=== PATIENT | female | born 1935 | race Caucasian/White ===

== ENCOUNTER 2016-05-15 09:04 | Day surgery (SDC) | payer MEDICARE, OTHER ==
--- NOTE | ~2016-05-15 | EGD ---
EGD REPORT [facility] [address] [place]. [address] NAME: MARLEE LOYOLA : [birth year] [place]US : [place] [facility] [place] [id number] AGE: 80 ADM/REG DATE : 05/15/16 MR#: [id number] REPORT SERV DATE: 05/15/16 DICTATED BY: MINERVA DE LA FUENTE DATE: 05/15/16 REPORT STATUS : Draft TRANSCRIBED BY: [facility] DATE: 05/15/16 Endoscopy Center Patient Name: Marlee Loyola Date of : 1935 Attending MD: MINERVA DE LA FUENTE MD Procedure Date No Time: 05/15/2016 Procedure: Colonoscopy Indications: FH of Colon Cancer - 1st degree relative, FH of Colon Cancer - multiple second-degree relatives, Change in bowel habits, Fecal incontinence Referring MD: SHARYN ECHEVARRIA Medicines: as per anesthesia Complications: No immediate complications. Procedure: After I obtained informed consent, the scope was passed under direct vision. Throughout the procedure, the patient's blood pressure, pulse, and oxygen saturations were monitored continuously. The Colonoscope was introduced through the anus and advanced to the cecum, identified by appendiceal orifice and ileocecal valve. The colonoscopy was performed without difficulty. The patient tolerated the procedure. The quality of the bowel preparation was adequate to identify polyps. Findings: The perianal and digital rectal examinations were normal. Multiple small and large-mouthed diverticula were found in the sigmoid colon and in the descending colon. Internal hemorrhoids were found during endoscopy and were mild. Impression: - Diverticulosis in the sigmoid colon and in the descending colon. - Internal hemorrhoids. Recommendation: - Continue present medications. Procedure Code(s): --- Professional --- 29414, Colonoscopy, flexible, proximal to splenic flexure; diagnostic, with or without collection of specimen(s) by brushing or washing, with or without colon decompression (separate procedure) Diagnosis Code(s): --- Professional --- K64.8, Other hemorrhoids K57.30, Diverticulosis of large intestine without perforation or abscess without bleeding EGD REPORT [facility] [address] [place], [place] [address]. [address] NAME: MARLEE LOYOLA : [birth year] STATUS : REG [facility]#: [id number] AGE: 80 ADM/REG DATE : 05/15/16 MR#: [id number] REPORT SERV DATE: 05/15/16 DICTATED BY: MINERVA DE LA FUENTE DATE: 05/15/16 REPORT STATUS : Draft TRANSCRIBED BY: [employer] DATE: 05/15/16 Z80.0, Family history of malignant neoplasm of digestive organs R19.4, Change in bowel habit R15.9, Full incontinence of feces CPT copyright 2013 [employer]. All rights reserved. The codes documented in this report are preliminary and upon parole director review may be revised to meet current compliance requirements. MINERVA DE LA FUENTE MD 05/15/2016 11:42 AM This report has been signed electronically. Number of Addenda: 0 Note Initiated On: 05/15/2016 11:06 AM Scope Withdrawal Time 0 hours 7 minutes [address] [place] [id number]
--- NOTE | ~2016-05-15 | EGD ---
EGD REPORT [facility] [address] [place]. [address] NAME: MARLEE LOYOLA : [birth year] STATUS : REG [facility] [place] PAT#: [id number] AGE: 80 ADM/REG DATE : 05/15/16 MR#: [id number] REPORT SERV DATE: 05/15/16 DICTATED BY: MINERVA DE LA FUENTE DATE: 05/15/16 REPORT STATUS : Draft [facility]ANSCRIBED BY: [facility] DATE: 05/15/16 Endoscopy Center Patient Name: Marlee Loyola Date of : 1935 Attending MD: MINERVA DE LA FUENTE MD Procedure Date No Time: 05/15/2016 Procedure: Colonoscopy Indications: FH of Colon Cancer - 1st degree relative, FH of Colon Cancer - multiple second-degree relatives, Change in bowel habits, Fecal incontinence Referring MD: DEMETRIA SANDERS, SHARYN LEYVA, GUILHERME PANTOJA MD Medicines: as per anesthesia Complications: No immediate complications. Procedure: After I obtained informed consent, the scope was passed under direct vision. Throughout the procedure, the patient's blood pressure, pulse, and oxygen saturations were monitored continuously. The Colonoscope was introduced through the anus and advanced to the cecum, identified by appendiceal orifice and ileocecal valve. The colonoscopy was performed without difficulty. The patient tolerated the procedure. The quality of the bowel preparation was adequate to identify polyps. Findings: The perianal and digital rectal examinations were normal. Multiple small and large-mouthed diverticula were found in the sigmoid colon and in the descending colon. Internal hemorrhoids were found during endoscopy and were mild. Impression: - Diverticulosis in the sigmoid colon and in the descending colon. - Internal hemorrhoids. Recommendation: - Continue present medications. Procedure Code(s): --- Professional --- 90047, Colonoscopy, flexible, proximal to splenic flexure; diagnostic, with or without collection of specimen(s) by brushing or washing, with or without colon decompression (separate procedure) Diagnosis Code(s): --- Professional --- K64.8, Other hemorrhoids K57.30, Diverticulosis of large intestine without EGD REPORT [address] [place]. [address] NAME: MARLEE LOYOLA : [birth year] STATUS : REG [facility] [place] PAT#: [id number] AGE: 80 ADM/REG DATE : 05/15/16 MR#: [id number] REPORT SERV DATE: 05/15/16 DICTATED BY: MINERVA DE LA FUENTE. DATE: 05/15/16 REPORT STATUS : Draft TRANSCRIBED BY: [employer] DATE: 05/15/16 perforation or abscess without bleeding Z80.0, Family history of malignant neoplasm of digestive organs R19.4, Change in bowel habit R15.9, Full incontinence of feces CPT copyright 2013 [employer]. All rights reserved. The codes documented in this report are preliminary and upon certified art therapist review may be revised to meet current compliance requirements. MINERVA DE LA FUENTE MD 05/15/2016 11:42 AM This report has been signed electronically. Number of Addenda: 0 Note Initiated On: 05/15/2016 11:06 AM Scope Withdrawal Time 0 hours 7 minutes [address] [place] [address]
[~2016-05-15 09:04] MED LIST: ASA5GR PO; BEN25 PO; BLINK EYE DROPS OP; CITRACAL PO; EFUDEX CREAM 5%40 GM TOP; EPIPEN0.3 IM; GLUCCHONDR PO; GLUCOSAMINEPO; GUAIFENESI4 PO; HALOBETASOL T; LAC-HYDRIN TOP; MAGNESIUM OTC PO; MULTIVITAMI1 PO; NIZORALCRM TOP; PROMEGA PO; SILVADENE1 % TOP; T PO; VITAMIN D31000 UNIT PO; VITE200U; [UNRECOGNIZED DRUG - OTHER]; [UNRECOGNIZED DRUG - OTHER] PO
== END 2016-05-15 23:59 | disposition home or self-care (01) ==
LOC: DMU 09:04
PROVIDERS: Internal Medicine Gastroenterology
PROC: 0DJD8ZZ Inspection of Lower Intestinal Tract, Via Natural or Artificial Opening Endoscopic (ICD-10-PCS; principal; 2016-05-15 11:00)
DX: Z12.11 Encounter for screening for malignant neoplasm of colon (principal); K64.8 Other hemorrhoids; K57.30 Diverticulosis of large intestine without perforation or abscess without bleeding; I44.7 Left bundle-branch block, unspecified; G47.33 Obstructive sleep apnea (adult) (pediatric); G43.909 Migraine, unspecified, not intractable, without status migrainosus; M19.90 Unspecified osteoarthritis, unspecified site; F32.9 Major depressive disorder, single episode, unspecified; Z80.0 Family history of malignant neoplasm of digestive organs; Z88.8 Allergy status to other drugs, medicaments and biological substances; Z79.899 Other long term (current) drug therapy; Z98.890 Other specified postprocedural states